=== PATIENT | male | born 1985 | race Two or more races ===

== ENCOUNTER → 2018-02-18 | Emergency (ER) | payer OTHER ==
[~2018-02-18] VITALS: Ht 175.3 cm; Wt 54.4 kg
[~2018-02-18] MED LIST: MEDROLPACK PO; NEURONTIN300 MG PO; ULTRACET PO
== END | disposition home or self-care (01) ==
LOC: ER 23:03
DX: S00.83XA Contusion of other part of head, initial encounter (principal); S33.5XXA Sprain of ligaments of lumbar spine, initial encounter; V80.010A Animal-rider injured by fall from or being thrown from horse in noncollision accident, initial encounter; Y93.89 Activity, other specified; Y92.89 Other specified places as the place of occurrence of the external cause; Y99.8 Other external cause status